=== PATIENT | male | born 1985 | race American Indian/Alaskan Native ===

== ENCOUNTER 2017-07-16 01:38 | Emergency (ER) | payer SELFPAY ==
[2017-07-16 02:12] VITALS: BP 131/70
[2017-07-16 04:00] LABS: Basophils % (Auto) 0.9 % (0.0-1.8); Eosinophils % (Auto) 0.2 % (0.0-4.3); Hematocrit 46.8 % (35.5-45.6); Hemoglobin 15.7 gm/dl (11.8-15.2); Mean Corpuscular HGB Conc 34 % (32-34); Mean Corpuscular Hemoglobin 30 pg (28-32); Mean Corpuscular Volume 88 fl (84-94); Platelet Count 239 K/mm3 (140-440); Red Cell Distribution Width 13.6 % (13.2-15.2)
[2017-07-16 04:23] LABS: Alanine Aminotransferase 16 units/L (7-56); Albumin 5.2 g/dL (3.9-5); Albumin/Globulin Ratio 2.3 %; Alkaline Phosphatase 72 units/L (35-129); Anion Gap 23 mmol/L; BUN/Creatinine Ratio 12; Blood Urea Nitrogen 13 mg/dL (9-20); Calcium 9.9 mg/dL (8.4-10.2); Carbon Dioxide 22 mmol/L (22-30); Chloride 100.2 mmol/L (98-107); Glucose 102 mg/dL (75-100); Lipase 22 units/L (13-60); Potassium 4.4 mmol/L (3.6-5.0); Sodium 141 mmol/L (137-145); Total Protein 7.5 g/dL (6.3-8.2)
[2017-07-16 06:02] LABS: Bilirubin,Urine NEG (Negative); Blood,Urine NEG (Negative); Ketones,Urine 20 mg/dL (Negative); Leukocyte Esterase,Urine TR (Negative); Mucus,Urine 3+ /HPF; Nitrite,Urine NEG (Negative); Protein,Urine <15 mg/dL mg/dL (Negative); Urobilinogen,Urine < 2.0 mg/dL (<2.0)
== END 2017-07-16 11:00 | disposition left against medical advice (07) ==
LOC: ED 01:38
DX: R10.9 Unspecified abdominal pain (principal); Z53.21 Procedure and treatment not carried out due to patient leaving prior to being seen by health care provider
CPT/HCPCS: 36415; 80053; 81001; 83690; 85025